=== PATIENT | male | born 1975 | race Hispanic/Latino ===

== ENCOUNTER 2018-01-02 18:50 | Emergency (ER) | payer SELFPAY ==
[2018-01-02 19:09] VITALS: BP 130/92; PULSE 76; RESP 19; TEMP 98.2; O2SAT 98; BMI 24.3
--- NOTE | 2018-01-02 19:24 | ED PDOC ---
Arrival/HPI - General Historian: Patient - History of Present Illness Narrative History of Present Illness (Text): 01/02/18 19:25 42 yo M with no significant past medical history presenting to the ED with R sided rib/back pain s/p mechanical fall. Per patient, he was walking outside of a friend's house earlier today when he slipped and fell over a patch of wet slate on the sidewalk. He denies any head trauma or LOC, states that he twisted his body and landed on his R hip and back. He described the pain as stabbing in quality, constant, rates 8/10 in severity. Pain is worsened on inspiration and sitting. Tried taking Tylenol, didn't make it better. No other acute complaints. ROS negative otherwise. PMHx: denies PSHx: denies Allergies: NKDA FHx: "cancer" Social Hx: + tobacco use--04/11 ppd, denies alcohol or drug use. Time/Duration: Prior to Arrival Symptom Onset: Sudden Symptom Course: Unchanged Quality: Stabbing Severity Level: 8 Activities at Onset: Light Context: Walking <Kofi Drummond - Last Filed: 01/02/18 20:13> <Alan Oleary - Last Filed: 01/03/18 04:17> - General Chief Complaint: Trauma Time Seen by Provider: 01/02/18 19:14 Past Medical History - Provider Review Nursing Documentation Reviewed: Yes - Travel History Have you recently traveled outside [place] w/in the past 3 mons?: No - Past History Past History: No Previous - Psychiatric Hx Substance Use: No <Kofi Drummond - Last Filed: 01/02/18 20:13> Family/Social History - Physician Review Nursing Documentation Reviewed: Yes Family/Social History: Neoplasm/Cancer Smoking Status: Light Smoker < 10 Cigarettes Daily Hx Alcohol Use: No Hx Substance Use: No <Kofi Drummond - Last Filed: 01/02/18 20:13> Allergies/Home Meds <Kofi Drummond - Last Filed: 01/02/18 20:13> <Alan Oleary - Last Filed: 01/03/18 04:17> Allergies/Adverse Reactions: Allergies No Known Allergies Allergy (Verified 01/02/18 19:07) Home Medications: Home Meds Medication Instructions Recorded Confirmed RX: No Known Home Med 01/02/18 01/02/18 Review of Systems - Physician Review All systems were reviewed & negative as marked: Yes - Review of Systems Constitutional: Normal Eyes: Normal ENT: Normal Respiratory: Normal Cardiovascular: Normal Gastrointestinal: Normal Genitourinary Male: Normal Musculoskeletal: Normal Skin: Normal Neurological: Normal Endocrine: Normal Hemo/Lymphatic: Normal Psychiatric: Normal <Kofi Drummond - Last Filed: 01/02/18 20:13> Physical Exam - Physical Exam Narrative Physical Exam (Text): 01/02/18 19:32 No ecchymosis, abrasions, lacerations, contusions noted No crepitus on PE TTP R ribs 5-12 R paraspinal tenderness Vital Signs Temp Pulse Resp BP Pulse Ox 01/02/18 19:07 98.2 F 76 19 130/92 H 98 Temperature: Afebrile Blood Pressure: Hypertensive Pulse: Regular Respiratory Rate: Normal Appearance: Positive for: Non-Toxic Pain Distress: Moderate Mental Status: Positive for: Alert and Oriented X 3 - Systems Exam Head: Present: Atraumatic, Normocephalic Pupils: Present: PERRL Extroacular Muscles: Present: EOMI Conjunctiva: Present: Normal Ears: Present: Normal Mouth: Present: Moist Mucous Membranes Pharnyx: Present: Normal Neck: Present: Normal Range of Motion Respiratory/Chest: Present: Clear to Auscultation, Good Air Exchange, Tender to Palpation. No: Respiratory Distress, Accessory Muscle Use, Wheezes, Rales, Rhonchi Cardiovascular: Present: Regular Rate and Rhythm, Normal S1, S2 Abdomen: Present: Normal Bowel Sounds. No: Tenderness, Distention, Rebound, Guarding Upper Extremity: Present: Normal Inspection, Normal ROM, NORMAL PULSES, Capillary Refill < 2s. No: Cyanosis, Edema, Tenderness, Swelling, Erythema Lower Extremity: Present: Normal Inspection, NORMAL PULSES, Normal ROM, Capillary Refill < 2 s. No: Edema, CALF TENDERNESS, Cyanosis, Tenderness, Swelling Neurological: Present: CN II-XII Intact, Speech Normal Skin: Present: Warm, Dry, Normal Color Psychiatric: Present: Alert, Oriented x 3, Normal Insight, Normal Concentration <Kofi Drummond Last Filed: 01/02/18 20:13> Vital Signs Temp Pulse Resp BP Pulse Ox 01/02/18 19:07 98.2 F 76 19 130/92 H 98 <Alan Oleary - Last Filed: 01/03/18 04:17> Medical Decision Making ED Course and Treatment: 01/02/18 19:35 Impression: 42 yo M with no significant PMHx presenting with R sided rib/back pain s/p mechanical fall. Plan: --CMP --Motrin 600 mg PO x1 --XR PA/Lat chest --Monitor and disposition <Kofi Drummond - Last Filed: 01/02/18 20:13> - Medication Orders Current Medication Orders: Discontinued Medications Ibuprofen (Motrin Tab) 600 mg PO STAT STA Stop: 01/02/18 19:40 <Alan Oleary - Last Filed: 01/03/18 04:17> - PA / INSPECTOR GENERAL / Resident Statement / has reviewed & agrees with the documentation as recorded. <Alan Oleary - Last Filed: 01/03/18 04:17> Disposition/Present on Arrival - Present on Arrival Any Indicators Present on Arrival: No History of DVT/PE: No History of Uncontrolled Diabetes: No Urinary Catheter: No History of Decub. Ulcer: No History Surgical Site Infection Following: None - Disposition Have Diagnosis and Disposition been Completed?: Yes Disposition Time: 20:14 <Kofi Drummond - Last Filed: 01/02/18 20:13> <Alan Oleary - Last Filed: 01/03/18 04:17> - Disposition Diagnosis: Back pain Disposition: ELOPEMENT - ER ONLY Condition: STABLE Forms: [place] ([place]ican)
== END 2018-01-02 19:44 | disposition left against medical advice (07) ==
LOC: ED 18:50
DX: M54.9 Dorsalgia, unspecified (principal)